=== PATIENT | male | born 1975 | race Caucasian/White ===

== ENCOUNTER 2024-12-20 06:24 | Day surgery (SDC) | payer OTHER, SELFPAY | END 2024-12-20 14:28 | disposition home or self-care (01) | LOC: GI 06:24 | PROVIDERS: ATTENDING PHYSICIAN Internal Medicine | DX: Z12.11 Encounter for screening for malignant neoplasm of colon (principal); K55.20 Angiodysplasia of colon without hemorrhage; K64.8 Other hemorrhoids; K63.5 Polyp of colon | CPT/HCPCS: 45385; 88305 ==